=== PATIENT | male | born 1980 | race Caucasian/White ===

== ENCOUNTER 2022-07-04 22:02 | Emergency (ER) | payer OTHER ==
[~2022-07-04] VITALS: Ht 180.3 cm; Wt 102.1 kg
[2022-07-04] MEDS ORDERED: PEPCID AC10 MG PO (22:16)
[2022-07-04] MEDS ORDERED: TENORMIN25 MG PO (22:16)
[2022-07-04] MEDS ORDERED: TOPROL XL25 M1 PO (22:16)
[2022-07-04] MEDS ORDERED: LASIX20 MG PO (22:16)
[2022-07-05] MEDS ORDERED: KETO10TA2 PO (01:10)
== END 2022-07-05 | disposition home or self-care (01) ==
LOC: ER 22:02
DX: S00.83XA Contusion of other part of head, initial encounter (principal); W07.XXXA Fall from chair, initial encounter; Y93.9 Activity, unspecified; Y92.63 Factory as the place of occurrence of the external cause; I10 Essential (primary) hypertension